=== PATIENT | male | born 1975 | race Caucasian/White ===

== ENCOUNTER 2020-08-15 23:16 | Emergency (ER) | payer SELFPAY ==
[2020-08-16 00:51] LABS: Absolute Lymphocytes (CBC) 2.2 K/uL (0.7-4.9); Basophils % 0.7 % (0-1.3); Hematocrit 44.2 % (39.6-49.0); Lymphocytes % 26.5 % (15.3-44.8); MPV 7.4 fL (7.6-11.3); RBC Red Blood Cell Count 4.74 M/uL (4.33-5.43)
[2020-08-16] MEDS ORDERED: NA CHLORIDE 0.9% 1,000 ML ONE (00:51)
[2020-08-16] MEDS ORDERED: MORPHINE 4 MG/ML SYR ONE (00:51)
[2020-08-16] MEDS ORDERED: ONDANSETRON 4 MG/2 ML VIAL ONE (00:51)
[2020-08-16 00:58] LABS: Urine Blood 3+ (Negative); Urine Glucose Negative (Negative); Urine Protein 1+ (Negative); Urine Specific Gravity >=1.030 (1.005-1.030); Urine pH 5.5 (5.0-7.0)
[2020-08-16 01:10] LABS: Albumin 4.6 g/dL (3.4-5.0); Bilirubin Direct 0.2 mg/dL (0-0.2); Bilirubin Total 0.9 mg/dL (0.2-1.0); Potassium 4.2 mmol/L (3.5-5.1); Protein, Total 7.9 g/dL (6.4-8.2)
[2020-08-16] MEDS ORDERED: KETOROLAC 30 MG/ML INJ ONE (01:55)
--- NOTE | 2020-08-16 02:17 | EDPHYS ---
Physician Documentation [facility] Name: Jesus Anderson Age: 45 yrs Sex: Male : 1975 Arrival Date: 08/15/2020 Time: 23:20 Bed 6 Private MD: ED Physician Celestine Morales HPI: 08/16 00:14 This 45 yrs old Male presents to ER via Ambulatory with complaints of mh7 Possible Kidney Stone, Back Pain. 00:15 The patient complains of pain in the right flank. The pain does not radiate. Onset: The mh7 symptoms/episode began/occurred yesterday. Modifying factors: The symptoms are alleviated by nothing. the symptoms are aggravated by nothing. 00:15 Associated signs and symptoms: Pertinent negatives: diarrhea, dizziness, dysuria, mh7 fever, urinary frequency, headache, hematuria, nausea, pain radiating to the lower extremities, vomiting. Severity of pain: At its worst the pain was moderate yesterday, in the emergency department the pain is unchanged. Historical: - Allergies: 00:01 Cholesterol medicine; wh - PMHx: 00:01 High Cholesterol; wh - Immunization history:: Adult Immunizations up to date. - Social history:: Smoking status: Patient denies any tobacco usage or history of. ROS: 00:16 Constitutional: Negative for fever, chills, and weight loss, Eyes: Negative for injury, mh7 pain, redness, and discharge, ENT: Negative for injury, pain, and discharge, Neck: Negative for injury, pain, and swelling, Cardiovascular: Negative for chest pain, palpitations, and edema, Respiratory: Negative for shortness of breath, cough, wheezing, and pleuritic chest pain, Abdomen/GI: Negative for abdominal pain, nausea, vomiting, diarrhea, and constipation, : Negative for injury, bleeding, discharge, and swelling, MS/Extremity: Negative for injury and deformity, Skin: Negative for injury, rash, and discoloration, Neuro: Negative for headache, weakness, numbness, tingling, and seizure, Psych: Negative for depression, anxiety, suicide ideation, homicidal ideation, and hallucinations, Allergy/Immunology: Negative for hives, rash, and allergies, Endocrine: Negative for neck swelling, polydipsia, polyuria, polyphagia, and marked weight changes, Hematologic/Lymphatic: Negative for swollen nodes, abnormal bleeding, and unusual bruising. Exam: 00:16 Constitutional: This is a well developed, well nourished patient who is awake, alert, mh7 and in no acute distress. Head/Face: Normocephalic, atraumatic. Eyes: Pupils equal round and reactive to light, extra-ocular motions intact. Lids and lashes normal. Conjunctiva and sclera are non-icteric and not injected. Cornea within normal limits. Periorbital areas with no swelling, redness, or edema. Neck: Trachea midline, no thyromegaly or masses palpated, and no cervical lymphadenopathy. Supple, full range of motion without nuchal rigidity, or vertebral point tenderness. No Meningismus. Chest/axilla: Normal chest wall appearance and motion. Nontender with no deformity. No lesions are appreciated. Cardiovascular: Regular rate and rhythm with a normal S1 and S2. No gallops, murmurs, or rubs. Normal PMI, no JVD. No pulse deficits. Respiratory: Lungs have equal breath sounds bilaterally, clear to auscultation and percussion. No rales, rhonchi or wheezes noted. No increased work of breathing, no retractions or nasal flaring. Abdomen/GI: Soft, non-tender, with normal bowel sounds. No distension or tympany. No guarding or rebound. No evidence of tenderness throughout. 00:16 Skin: Warm, dry with normal turgor. Normal color with no rashes, no lesions, and no evidence of cellulitis. MS/ Extremity: Pulses equal, no cyanosis. Neurovascular intact. Full, normal range of motion. Neuro: Awake and alert, GCS 15, oriented to person, place, time, and situation. Cranial nerves II-XII grossly intact. Motor strength 5/5 in all extremities. Sensory grossly intact. Cerebellar exam normal. Normal gait. Psych: Awake, alert, with orientation to person, place and time. Behavior, mood, and affect are within normal limits. 00:16 Back: ROM is normal, normal spinal alignment noted, CVA tenderness, that is moderate, is noted on the right, vertebral tenderness, is not appreciated, muscle spasm, is not present. Vital Signs: 08/15 23:58 BP 163 / 109; Pulse 64; Resp 18; Temp 96.8; Pulse Ox 99% ; Weight 92.99 kg; Height 5 wh ft. 9 in. (175.26 cm); Pain 05/17; 08/16 02:05 BP 133 / 100; Pulse 59; Resp 18; Pulse Ox 100% on R/A; wh 02:34 BP 127 / 87; Pulse 57; Resp 18; Pulse Ox 98% on R/A; Pain 2/10; lp1 08/15 23:58 Body Mass Index 30.27 (92.99 kg, 175.26 cm) MDM: 02:15 Differential diagnosis: nephrolithiasis, pyelonephritis, UTI. Data reviewed: [facility] signs, nurses notes, lab test result(s), CBC, electrolytes, urinalysis, radiologic studies, CT scan. Data interpreted: Pulse oximetry: on room air is 100 %. Interpretation: normal. Counseling: I had a detailed discussion with the patient and/or guardian regarding: the historical points, exam findings, and any diagnostic results supporting the discharge/admit diagnosis, the presence of at least one elevated blood pressure reading (>120/80) during this emergency department visit, lab results, radiology results, the need for outpatient follow up, a urologist, to return to the emergency department if symptoms worsen or persist or if there are any questions or concerns that arise at home. Response to treatment: the patient's symptoms have resolved after treatment, the patient's blood pressure is in an acceptable range, mental status has returned to baseline, the patient no longer shows bradycardia, the patient is not short of breath, the patient is not tachycardic, the patient's pain is gone, the patient's temperature has normalized. 02:17 Patient medically screened. [facility] 08/16 00:01 Order name: Basic Metabolic Panel; Complete Time: : [facility] 08/16 00:01 Order name: CBC with Diff; Complete Time: 01:07 [facility] 08/16 00:01 Order name: Hepatic Function; Complete Time: :21 [facility] 08/16 00:01 Order name: Lipase; Complete Time: : [facility] 08/16 00:01 Order name: CT Stone Protocol [facility] 08/16 00:58 Order name: Urine Dipstick-Ancillary; Complete Time: 01:07 [facility] 08/16 00:01 Order name: IV Saline Lock; Complete Time: 00:49 [facility] 08/16 00:01 Order name: Labs collected and sent; Complete Time: 00:49 mh7 08/16 00:01 Order name: Urine Dipstick-Ancillary (obtain specimen); Complete Time: 00:46 mh7 Administered Medications: 00:48 Drug: NS 0.9% 1000 ml Route: IV; Rate: 1000 ml; Site: right antecubital; lp1 01:50 Follow up: IV Status: Completed infusion; IV Intake: 1000ml lp1 00:49 Drug: morphine 4 mg Route: IVP; Site: right antecubital; lp1 01:27 Follow up: Response: No adverse reaction; Pain is decreased; RASS: Alert and Calm (0) 00:49 Drug: Zofran (Ondansetron) 4 mg Route: IVP; Site: right antecubital; lp1 01:27 Follow up: Response: No adverse reaction; Nausea is decreased 01:43 Drug: TORadol 30 mg Route: IVP; Site: right antecubital; wh 02:35 Follow up: Response: Marked relief of symptoms lp1 Disposition: 08/16/20 02:17 Discharged to Home. Impression: Ureterolithiasis. - Condition is Stable. - Discharge Instructions: Kidney Stones, [id number]. - Prescriptions for Zofran ODT 4 mg Oral tablet,disintegrating - place 1 tablet by TRANSLINGUAL route every 8 hours As needed; 6 tablet. ketorolac 10 mg Oral tablet - take 1 tablet by ORAL route every 8 hours As needed not to exceed 40 mg in 24hrs; 15 tablet. Tylenol- Codeine #3 300-30 mg Oral Tablet - take 2 tablets by ORAL route every 6 hours As needed; 20 tablet. Flomax 0.4 mg Oral Capsule, Sust. Release 24 hr - take 1 capsule by ORAL route once daily 1/2 hour following the same meal each day; 10 capsule. - Medication Reconciliation Form, Thank You Letter, Antibiotic Education, Prescription Opioid Use form. - Follow up: Private Physician; When: 1 - 2 days; Reason: Worsening of condition, Recheck today's complaints, Continuance of care, Re-evaluation by your physician. Follow up: Grady Dc MD; When: 1 - 2 days; Reason: Worsening of condition, Recheck today's complaints. - Problem is an acute exacerbation. - Symptoms have improved. Signatures: Dispatcher [employer] EDKellen Cruz RN RN lp1 Tyrese Arrington RN RN Celestine Morales MD MD mh7 Corrections: (The following items were deleted from the chart) 02:35 02:17 08/16/2020 02:17 Discharged to Home. Impression: Ureterolithiasis. Condition is lp1 Stable. Forms are Medication Reconciliation Form, Thank You Letter, Antibiotic Education, Prescription Opioid Use. Follow up: Private Physician; When: 1 - 2 days; Reason: Worsening of condition, Recheck today's complaints, Continuance of care, Re-evaluation by your physician. Follow up: Grady Dc; When: 1 - 2 days; Reason: Worsening of condition, Recheck today's complaints. Problem is an acute exacerbation. Symptoms have improved. mh7
--- NOTE | 2020-08-16 02:17 | ER ---
Nurse's Notes [facility] Name: Jesus Anderson Age: 45 yrs Sex: Male : 1975 Arrival Date: 08/15/2020 Time: 23:20 Bed 6 Private MD: Diagnosis: Ureterolithiasis Presentation: 08/15 23:58 Chief complaint: Patient states: on and off back pain that started this morning, Pt wh with Hx of kidney stones. Coronavirus screen: Client denies travel out of the [place] in the last 14 days. At this time, the client does not indicate any symptoms associated with coronavirus-19. Ebola Screen: Patient negative for fever greater than or equal to 101.5 degrees Fahrenheit, and additional compatible Ebola Virus Disease symptoms Patient denies exposure to infectious person. Initial Sepsis Screen: Does the patient meet any 2 criteria? No. Patient's initial sepsis screen is negative. Does the patient have a suspected source of infection? No. Patient's initial sepsis screen is negative. Risk Assessment: Do you want to hurt yourself or someone else? Patient reports no desire to harm self or others. Onset of symptoms was August 16, 2020. 23:58 Method Of Arrival: Ambulatory 23:58 Acuity: JUAN 3 Historical: - Allergies: 08/16 00:01 Cholesterol medicine; wh - PMHx: 00:01 High Cholesterol; wh - Immunization history:: Adult Immunizations up to date. - Social history:: Smoking status: Patient denies any tobacco usage or history of. Screenin:02 Abuse screen: Denies threats or abuse. Denies injuries from another. Nutritional screening: No deficits noted. Tuberculosis screening: No symptoms or risk factors identified. Fall Risk None identified. Assessment: 00:03 General: Appears in no apparent distress. Behavior is calm, cooperative, appropriate wh for age. Pain: Complains of pain in mid back pain Pain currently is 1 out of 10 on a pain scale. Neuro: Level of Consciousness is awake, alert, obeys commands, Oriented to person, place, time, situation, Appropriate for age. Cardiovascular: Heart tones S1 S2. Respiratory: Airway is patent Respiratory effort is even, unlabored, Respiratory pattern is regular, symmetrical. Respiratory: Breath sounds are clear bilaterally. GI: Abdomen is flat, non-distended, Bowel sounds present X 4 quads. Abd is soft and non tender X 4 quads. : No signs and/or symptoms were reported regarding the genitourinary system. EENT: No signs and/or symptoms were reported regarding the EENT system. Derm: Skin is intact, is healthy with good turgor, Skin is pink, warm \T\ dry. normal. Musculoskeletal: Circulation, motion, and sensation intact. 01:02 Reassessment: Patient appears in no apparent distress at this time. No changes from previously documented assessment. Patient and/or family updated on plan of care and expected duration. Pain level reassessed. Patient is alert, oriented x 3, equal unlabored respirations, skin warm/dry/pink. 02:04 Reassessment: Patient appears in no apparent distress at this time. Patient and/or family updated on plan of care and expected duration. Pain level reassessed. Patient is alert, oriented x 3, equal unlabored respirations, skin warm/dry/pink. Vital Signs: 08/15 23:58 BP 163 / 109; Pulse 64; Resp 18; Temp 96.8; Pulse Ox 99% ; Weight 92.99 kg; Height 5 ft. 9 in. (175.26 cm); Pain 05/17; 08/16 02:05 BP 133 / 100; Pulse 59; Resp 18; Pulse Ox 100% on R/A; 02:34 BP 127 / 87; Pulse 57; Resp 18; Pulse Ox 98% on R/A; Pain 2/10; lp1 08/15 23:58 Body Mass Index 30.27 (92.99 kg, 175.26 cm) ED Course: 08/15 23:20 Patient arrived in ED. cf2 23:45 Tyrese Arrington, RN is Primary Nurse. 23:45 Celestine Morales MD is Attending Physician. mh7 08/16 00:00 Triage completed. 00:02 Patient has correct armband on for positive identification. Bed in low position. Call light in reach. Side rails up X 1. Pulse ox on. NIBP on. 00:04 Arm band placed on right wrist. 00:25 CT Stone Protocol In Process Unspecified. EDMS 00:40 Inserted saline lock: 20 gauge in right antecubital area, using aseptic technique. lp1 Blood collected. 02:16 Grady Dc MD is Referral Physician. 7 02:34 No provider procedures requiring assistance completed. IV discontinued, No lp1 redness/swelling at site. Pressure dressing applied. Administered Medications: 00:48 Drug: NS 0.9% 1000 ml Route: IV; Rate: 1000 ml; Site: right antecubital; lp1 01:50 Follow up: IV Status: Completed infusion; IV Intake: 1000ml lp1 00:49 Drug: morphine 4 mg Route: IVP; Site: right antecubital; lp1 01:27 Follow up: Response: No adverse reaction; Pain is decreased; RASS: Alert and Calm (0) 00:49 Drug: Zofran (Ondansetron) 4 mg Route: IVP; Site: right antecubital; lp1 01:27 Follow up: Response: No adverse reaction; Nausea is decreased 01:43 Drug: TORadol 30 mg Route: IVP; Site: right antecubital; 02:35 Follow up: Response: Marked relief of symptoms lp1 Intake: 01:50 IV: 1000ml; Total: 1000ml. lp1 Outcome: 02:17 Discharge ordered by . 7 02:34 Discharged to home ambulatory. lp1 02:34 Condition: good 02:34 Discharge instructions given to patient, Instructed on discharge instructions, follow up and referral plans. medication usage, Demonstrated understanding of instructions, follow-up care, medications, Prescriptions given X 4. 02:35 Patient left the ED. lp1 Signatures: Dispatcher [employer] EDMS Kellen Franco RN RN lp1 Tyrese Arrington RN RN Giovany Salazar 2 Celestine Morales MD MD [facility]
[2020-08-16 03:16] VITALS: TEMP 96.8
[2020-08-16 03:19] VITALS: BP 127/87; O2SAT 98
--- NOTE | 2020-08-17 12:00 | RAD REPORT ---
EXAM DESCRIPTION: Stone Protocol [facility]: CT ABDOMEN PELVIS WITHOUT IV CONTRAST CLINICAL HISTORY: FLANK PAIN. COMPARISON: None. TECHNIQUE: Serial axial CT images were obtained from above the diaphragm through the pubic symphysis without administration of intravenous or oral contrast. All CT scans are performed using dose optimization techniques as appropriate, including automated exp osure control and/or standardized protocols, where dose is adjusted for indication for exam and body habitus. FINDINGS: Thoracic: No significant abnormality. Hepatobiliary: Diffuse hepatic steatosis. Hepatomegaly, measuring 19.1 cm in length. No obvious cris rning hepatic lesion identified in the absence of intravenous contrast. The gallbladder is unremarkab le. No biliary ductal dilatation. Pancreas: Unremarkable. Spleen: Unremarkable. Gastrointestinal: No evidence of bowel obstruction or perienteric inflammation. The appendix is juancarlos l. Small amount of fecal material in the colon. Adrenals: No abnormality identified in either adrenal gland. Renal: Mild right-sided hydronephrosis, with a small proximal ureteral calculus which measures 0.3 cm in size, located 1.3 cm distal to the ureteropelvic junction. Punctate superior right renal calculus . No hydronephrosis or urolithiasis on the left. No obvious parenchymal abnormality in either kidney in the absence of intravenous contrast. Bladder/Reproductive: Grossly unremarkable appearance of the underdistended urinary bladder by CT rosa hnique. Vascular/Lymphatics: No lymphadenopathy identified by CT size criteria. Abdominal aorta is normal in caliber. Mild calcific atherosclerosis. Musculoskeletal: No concerning osseous lesion identified. Mild disc and endplate degeneration at L4-5 and L5-S1. Fluid / peritoneum: No significant free fluid. No free intraperitoneal air identified. IMPRESSION: 1. Right proximal ureteral 0.3 cm calculus resulting in mild right-sided hydronephrosi s. 2. Punctate superior right renal calculus. No left-sided urolithiasis or hydronephrosis. 3. Mild hepatomegaly and diffuse hepatic steatosis. Electronically signed by: Mimi Pandey MD 08/16/2020 12:33 AM CDT Due to temporary technical issues with the PACS/Fluency reporting system, reports are being signed by the in house radiologist without review as a courtesy to ensure prompt reporting. The interpreting r adiologist is fully responsible for the content of the report.
== END 2020-08-16 02:35 | disposition home or self-care (01) ==
LOC: ER 23:16
DX: N20.1 Calculus of ureter (principal); E78.00 Pure hypercholesterolemia, unspecified
CPT/HCPCS: 36415; 74176; 76377; 80048; 80076; 81003; 83690; 85025; 96361; 96374; 96375; 99284; J2405; J7030